=== PATIENT | female | born 1970 | race Caucasian/White ===

== ENCOUNTER 2019-09-09 22:08 | Emergency (ER) | payer OTHER ==
[~2019-09-09] VITALS: Ht 154.9 cm; Wt 86.2 kg
[~2019-09-09 22:08] MED LIST: AMOXICILLIN 50500 MG PO; ASPIR 8181 MG; CLARITIN10 MG; FLONASE16 GM; HYDROXYZINE HCL25 M1 PO; MULTIVITAMINS1 EAC7; TRAMADOL 50 MG50 MG PO
[2019-09-09] MEDS ORDERED: AMOXICILLIN875 MG PO (23:37)
[2019-09-09 23:45] VITALS: BP 158/98
== END 2019-09-09 23:45 | disposition home or self-care (01) ==
LOC: M.ERS 22:08
DX: J32.9 Chronic sinusitis, unspecified (principal); N80.9 Endometriosis, unspecified; Z88.5 Allergy status to narcotic agent; Z88.8 Allergy status to other drugs, medicaments and biological substances; Z90.49 Acquired absence of other specified parts of digestive tract; Z90.89 Acquired absence of other organs

== ENCOUNTER 2020-12-10 21:11 | Emergency (ER) | payer OTHER ==
[~2020-12-10] VITALS: Ht 154.9 cm; Wt 86.2 kg
[~2020-12-10 21:11] MED LIST changes: +AMOXICILLIN875 MG PO
[2020-12-10] MEDS ORDERED: HYDROXYZINE HCL25 M2 PO ×2 (21:25→23:24)
[2020-12-10 22:00] LABS: ABSOLUTE BASOPHILS 0.1 thou/uL (0.0-0.2); ABSOLUTE EOSINOPHILS 0.2 thou/uL (0.0-0.7); ABSOLUTE LYMPHOCYTES 1.8 thou/uL (0.8-5.3); ABSOLUTE MONOCYTES 0.6 thou/uL (0.0-1.2); ABSOLUTE NEUTROPHILS 7.1 thou/uL (1.6-8.1); BASOPHILS 0.5 %; EOSINOPHILS 1.9 %; HEMATOCRIT 39.1 % (37.0-47.0); HEMOGLOBIN 12.9 gm/dL (12.0-15.0); LYMPHOCYTES 18.8 %; MCH 28.4 pg (26.0-34.0); MONOCYTES 6.3 %; MPV 9.1 fl. (7.2-11.1); NUCLEATED RBCS 0 /100WBC; PLATELET COUNT* 279 thou/uL (150-400); POLYS 72.5 %; RBC 4.54 mil/uL (4.20-5.00); WBC 9.8 thou/uL (4.0-11.0)
[2020-12-10 22:14] LABS: URINE BILIRUBIN NEGATIVE (Negative); URINE BLOOD 3+ (Negative); URINE CLARITY CLEAR; URINE COLOR YELLOW; URINE GLUCOSE-RANDOM NEGATIVE (Negative); URINE KETONES NEGATIVE (Negative); URINE LEUKOCYTES-REFLEX NEGATIVE (Negative); URINE NITRITE-REFLEX NEGATIVE (Negative); URINE PROTEIN NEGATIVE (Negative); URINE SPECIFIC GRAVITY 1.025 (1.005-1.030); URINE UROBILINOGEN 0.2 E.U./dl (0.2-1.0)
[2020-12-10 22:23] LABS: AMP/METHAMP Negative (Negative); BARBITURATES Negative (Negative); BENZODIAZEPINES Negative (Negative); COCAINE Negative (Negative); METHADONE Negative (Negative); OPIATES Negative (Negative); PCP Negative (Negative); THC Negative (Negative)
[2020-12-10 22:26] LABS: SQUAMOUS 4-10 Moderate /LPF (0-3)
[2020-12-10 22:27] LABS: AMORPHOUS PHOSPHATES Moderate /LPF (None Seen); CASTS None Seen /LPF (None Seen); MUCUS 0-3 Light strn/LPF (None Seen); URINE RBC >20 Many /HPF (0-2); URINE WBC-REFLEX 6-15 Few /HPF (0-5)
[2020-12-10 23:03] LABS: ALBUMIN 3.3 g/dL (3.4-5.0); CALCIUM 8.1 mg/dL (8.5-10.1); CREATININE 0.7 mg/dL (0.6-1.3); POTASSIUM 3.9 mmol/L (3.5-5.1); TOTAL BILIRUBIN 0.3 mg/dL (<0.1-1.0); TOTAL PROTEIN 6.8 g/dL (6.4-8.2)
[2020-12-10 23:58] VITALS: BP 138/70
== END 2020-12-10 23:59 | disposition home or self-care (01) ==
LOC: M.ERS 21:11
PROVIDERS: Personal Emergency Response Attendant
DX: R42 Dizziness and giddiness (principal); F41.1 Generalized anxiety disorder; R11.0 Nausea; G43.909 Migraine, unspecified, not intractable, without status migrainosus; Z86.16 Personal history of COVID-19; Z98.890 Other specified postprocedural states; Z90.49 Acquired absence of other specified parts of digestive tract; Z79.899 Other long term (current) drug therapy; Z79.82 Long term (current) use of aspirin; Z88.5 Allergy status to narcotic agent; Z88.8 Allergy status to other drugs, medicaments and biological substances